=== PATIENT | female | born 1975 | race Caucasian/White ===

== ENCOUNTER 2022-05-15 09:48 | Outpatient (CLI) | payer OTHER, SELFPAY ==
[2022-05-15 13:36] LABS: Chloride* 101 mmol/L (96-114); Potassium* 4.8 mmol/L (3.6-5.1); Sodium* 136 mmol/L (135-149)
[2022-05-15 13:39] LABS: Blood Urea Nitrogen* 12 mg/dL (5-24); Calcium* 10.4 mg/dL (8.4-10.6); Carbon Dioxide* 28 mmol/L (20-32); Creatinine* 0.8 mg/dL (0.5-1.5); Estimated Glomerular Filt Rate 91 ml/min; Glucose* 100 mg/dL (60-115)
[2022-05-15 14:13] LABS: Ferritin* 20.3 ng/mL (6.24-137.0)
[2022-05-15 14:26] LABS: Vitamin B12* 900 pg/mL (243-894)
== END 2022-05-15 09:49 | disposition home or self-care (01) ==
PROVIDERS: PCP Family Medicine; Visit Provider Emergency Medicine
DX: I10 Essential (primary) hypertension (principal); N92.0 Excessive and frequent menstruation with regular cycle; R25.1 Tremor, unspecified
CPT/HCPCS: 80048; 82607; 82728; 84443

== ENCOUNTER 2022-06-25 15:36 | Outpatient (CLI) | payer OTHER, SELFPAY ==
--- NOTE | 2022-06-25 16:00 | CRLHL7_ITS ---
For Patients: As a result of the Century Cures Act, medical imaging exams and procedure reports are released immediately into your electronic medical record. You may view this report before your referring provider. If you have questions, please contact your health care provider. INDICATION: MENORRHAGIA COMPARISON: none TECHNIQUE: 2D anderson scale and color Doppler images were acquired of the pelvis using a transabdominal and transvaginal approach. FINDINGS: Sonographic images demonstrate a normal size and smooth outer contour of the uterus. Uterus measures 11.4 cm in length by 5.2 cm in AP diameter by 7.4 cm in transverse dimension. section scar tissue noted. Incidental cervical nabothian cysts. No uterine fibroid. The endometrial lining appears thickened and measures 17 mm in composite thickness. The right ovary measures 4.1 x 2.1 x 2.0 cm in size and the left ovary measures 2.7 x 1.3 x 1.8 cm. The ovaries demonstrate normal arterial and venous blood flow on color Doppler analysis. There are no suspicious fluid collections within the cul-de-sac. IMPRESSION: Diffusely thickened endometrium measuring 17 millimeters. Dictated by Victorino Kruger MD @ 06/26/2022 10:03:03 AM (Electronically Signed)
== END 2022-06-25 15:37 | disposition home or self-care (01) ==
LOC: US 15:36
PROVIDERS: PCP Family Medicine; Visit Provider Emergency Medicine
DX: N92.0 Excessive and frequent menstruation with regular cycle (principal); R93.89 Abnormal findings on diagnostic imaging of other specified body structures
CPT/HCPCS: 76830; 76856

== ENCOUNTER 2022-07-24 13:11 | Outpatient (CLI) | payer OTHER, SELFPAY ==
[2022-07-24 14:44] LABS: Cholesterol* 280 mg/dL (90-199); Triglycerides* 49 mg/dL (40-149)
[2022-07-24 14:59] LABS: HDL Cholesterol* 161 mg/dL (>=50); LDL Cholesterol Calculated 109 mg/dL (<100)
== END 2022-07-24 13:12 | disposition home or self-care (01) ==
LOC: NFLDREF 13:12
PROVIDERS: PCP Family Medicine; Visit Provider Physician Assistant
DX: Z01.419 Encounter for gynecological examination (general) (routine) without abnormal findings (principal); Z13.6 Encounter for screening for cardiovascular disorders
CPT/HCPCS: 80061

== ENCOUNTER 2022-07-30 13:53 | Outpatient (CLI) | payer OTHER, SELFPAY ==
[2022-07-30 22:13] LABS: Chloride* 102 mmol/L (96-114); Potassium* 4.6 mmol/L (3.6-5.1); Sodium* 137 mmol/L (135-149)
[2022-07-30 22:16] LABS: Blood Urea Nitrogen* 11 mg/dL (5-24); Carbon Dioxide* 26 mmol/L (20-32); Creatinine* 0.8 mg/dL (0.5-1.5); Estimated Glomerular Filt Rate 91 ml/min
[2022-07-30 22:17] LABS: Glucose* 83 mg/dL (60-115)
== END 2022-07-30 13:54 | disposition home or self-care (01) ==
LOC: LKVREF 13:54
PROVIDERS: PCP Family Medicine; Visit Provider Emergency Medicine
DX: I10 Essential (primary) hypertension (principal)
CPT/HCPCS: 80048

== ENCOUNTER 2022-09-04 09:51 | Outpatient (CLI) | payer OTHER, SELFPAY | END 2022-09-04 09:52 | disposition home or self-care (01) | LOC: OP CLINIC 09:53 | PROVIDERS: PCP Emergency Medicine; Visit Provider Surgery | DX: Z12.11 Encounter for screening for malignant neoplasm of colon (principal); K63.5 Polyp of colon | CPT/HCPCS: 45385; 88305; 99153; J1200; J2250; J3010 ==

== ENCOUNTER 2022-09-05 14:42 | Outpatient (CLI) | payer OTHER, SELFPAY ==
--- NOTE | 2022-09-05 15:00 | CRLHL7_ITS ---
For Patients: As a result of the Century Cures Act, medical imaging exams and procedure reports are released immediately into your electronic medical record. You may view this report before your referring provider. If you have questions, please contact your health care provider. BILATERAL DIGITAL SCREENING MAMMOGRAM WITH TOMOSYNTHESIS AND COMPUTER-AIDED DETECTION CLINICAL HISTORY: Routine screening exam. COMPARISON: 03/11/2016. TECHNIQUE: Digital mammogram in CC and MLO projections including computer-aided detection (CAD). Tomosynthesis utilized. BREAST COMPOSITION: The breasts are heterogeneously dense, which may obscure small masses. FINDINGS: RIGHT Breast: Grouped microcalcifications in the upper breast 8 cm from the nipple MLO view only. LEFT Breast: No suspicious findings. Benign calcifications are present. IMPRESSION: RIGHT breast calcifications. RECOMMENDATIONS: Spot compression magnification views of the calcifications in the RIGHT breast in CC and ML projections. The CC view should be focused at the deep central breast tissue. Additional open ML view recommended. BI-RADS Category 0: Incomplete: Need additional Imaging Evaluation and/or Prior Mammograms for Comparison [facility] will contact the patient for follow-up. A lay language report of this examination will be provided to the patient. Dictated by Victorino Kruger MD @ 09/08/2022 10:33:52 AM jj/Dictated by: Victorino Kruger MD @ 09/08/2022 10:33:00 AM (Electronically Signed)
== END 2022-09-05 14:43 | disposition home or self-care (01) ==
PROVIDERS: PCP Emergency Medicine; Visit Provider Emergency Medicine
DX: Z12.31 Encounter for screening mammogram for malignant neoplasm of breast (principal); R92.2 Inconclusive mammogram; N63.10 Unspecified lump in the right breast, unspecified quadrant
CPT/HCPCS: 77063; 77067

== ENCOUNTER 2022-09-12 09:28 | Outpatient (CLI) | payer OTHER, SELFPAY ==
--- NOTE | 2022-09-12 09:45 | CRLHL7_ITS ---
For Patients: As a result of the Century Cures Act, medical imaging exams and procedure reports are released immediately into your electronic medical record. You may view this report before your referring provider. If you have questions, please contact your health care provider. RIGHT DIAGNOSTIC MAMMOGRAM WITH COMPUTER-AIDED DETECTION CLINICAL HISTORY: RIGHT breast calcifications. COMPARISON: 09/05/2022, 03/11/2016. TECHNIQUE: Digital LEFT mammogram in 4 projections. The microcalcifications are visualized on the spot magnification true lateral view and open 2D true lateral view but difficult to visualize on the spot magnification CC view therefore an open CC view was obtained. BREAST COMPOSITION: The breasts are heterogeneously dense, which may obscure small masses FINDINGS: Clustered mildly pleomorphic and non layering calcifications are present within the upper outer quadrant RIGHT breast 11 o`clock 8 cm from the nipple. These are close to the chest wall but stereotactic biopsy still should be considered. No associated mass. IMPRESSION: Indeterminate suspicious clustered mildly pleomorphic microcalcifications deep within the RIGHT breast upper outer quadrant 11 o`clock 8 cm from the nipple. RECOMMENDATIONS: Stereotactic-guided biopsy. BI-RADS Category 4: Suspicious Results and recommendations discussed with the patient. Examination reviewed with Dr. Rodriguez. A lay language report of this examination will be provided to the patient. Dictated by Victorino Kruger MD @ 09/12/2022 11:31:17 AM/darryl MARQUES/Dictated by: Victorino Kruger MD @ 09/12/2022 11:31:00 AM (Electronically Signed)
== END 2022-09-12 09:29 | disposition home or self-care (01) ==
LOC: MAMMO 09:29
PROVIDERS: PCP Emergency Medicine; Visit Provider Emergency Medicine
DX: R92.8 Other abnormal and inconclusive findings on diagnostic imaging of breast (principal); R92.2 Inconclusive mammogram
CPT/HCPCS: 77065

== ENCOUNTER 2022-10-15 11:04 | Outpatient (CLI) | payer OTHER, SELFPAY ==
[2022-10-15 16:41] LABS: Ferritin* 18.6 ng/mL (6.24-137.0)
== END 2022-10-15 11:05 | disposition home or self-care (01) ==
LOC: LKVREF 11:05
PROVIDERS: PCP Emergency Medicine; Visit Provider Emergency Medicine
DX: E61.1 Iron deficiency (principal)
CPT/HCPCS: 82728

== ENCOUNTER 2024-01-13 10:39 | Outpatient (CLI) | payer OTHER, SELFPAY | END 2024-01-13 10:40 | disposition home or self-care (01) | LOC: LKVREF 10:40 | PROVIDERS: PCP Physician Assistant Medical; Visit Provider Physician Assistant Medical | DX: I10 Essential (primary) hypertension (principal); E61.1 Iron deficiency; E78.00 Pure hypercholesterolemia, unspecified | CPT/HCPCS: 80053; 84443 ==

== ENCOUNTER 2024-10-05 11:05 | Outpatient (CLI) | payer OTHER, SELFPAY | END 2024-10-05 11:06 | disposition home or self-care (01) | PROVIDERS: PCP Physician Assistant Medical; Visit Provider Physician Assistant Medical | DX: I10 Essential (primary) hypertension (principal); R82.90 Unspecified abnormal findings in urine; Z13.29 Encounter for screening for other suspected endocrine disorder | CPT/HCPCS: 80053; 84443; 87086 ==

== ENCOUNTER 2024-10-24 15:10 | Outpatient (CLI) | payer OTHER, SELFPAY | END 2024-10-24 15:11 | disposition home or self-care (01) | LOC: MRI 15:12 | PROVIDERS: PCP Physician Assistant Medical; Visit Provider Physician Assistant Medical | DX: M54.2 Cervicalgia (principal); M50.221 Other cervical disc displacement at C4-C5 level; M50.222 Other cervical disc displacement at C5-C6 level; R29.898 Other symptoms and signs involving the musculoskeletal system | CPT/HCPCS: 72141 ==

== ENCOUNTER 2025-06-23 10:32 | Outpatient (CLI) | payer OTHER, SELFPAY | END 2025-06-23 10:33 | disposition home or self-care (01) | PROVIDERS: PCP Physician Assistant Medical; Visit Provider Physician Assistant Medical | DX: Z00.00 Encounter for general adult medical examination without abnormal findings (principal) | CPT/HCPCS: 80053; 80061; 84443 ==

== ENCOUNTER 2025-07-25 13:50 | Outpatient (CLI) | payer OTHER, SELFPAY | END 2025-07-25 13:51 | disposition home or self-care (01) | LOC: NFLDREF 08-05 19:01 | PROVIDERS: PCP Physician Assistant Medical; Referring Provider Physician Assistant Medical; Visit Provider Family Medicine | DX: N30.00 Acute cystitis without hematuria (principal) | CPT/HCPCS: 87086 ==